=== PATIENT | male | born 1955 | race Caucasian/White ===

== ENCOUNTER → 2017-02-14 | Outpatient (CLI) | payer BC | END | disposition home or self-care (01) | LOC: NUCLEAR 09:10 | DX: R10.9 Unspecified abdominal pain (principal); R59.0 Localized enlarged lymph nodes | CPT/HCPCS: 78802; A9556 ==

== ENCOUNTER 2017-08-11 14:48 | Emergency (ER) | payer BC ==
[~2017-08-11] VITALS: Ht 172.7 cm; Wt 80.7 kg
== END 2017-08-11 21:22 | disposition home or self-care (01) ==
LOC: ER 14:48
DX: S00.83XA Contusion of other part of head, initial encounter (principal); S00.33XA Contusion of nose, initial encounter; R55 Syncope and collapse; W18.09XA Striking against other object with subsequent fall, initial encounter; Y93.89 Activity, other specified; Y92.488 Other paved roadways as the place of occurrence of the external cause; Y99.8 Other external cause status

== ENCOUNTER 2017-08-15 08:17 | Outpatient (CLI) | payer BC | END 2017-08-15 08:25 | disposition home or self-care (01) | LOC: LAB 08:17 | DX: R00.8 Other abnormalities of heart beat (principal) ==

== ENCOUNTER 2017-08-16 12:53 | Outpatient (CLI) | payer BC | END 2017-08-16 12:58 | disposition home or self-care (01) | LOC: NUCLEAR 12:53 | DX: R00.2 Palpitations (principal) ==

== ENCOUNTER 2017-09-01 10:03 | Outpatient (CLI) | payer BC | END 2017-09-01 11:00 | disposition home or self-care (01) | LOC: NUCLEAR 10:03 | DX: I20.1 Angina pectoris with documented spasm (principal) | CPT/HCPCS: 78452; 93017; A9500; J0153 ==

== ENCOUNTER 2017-09-05 11:19 | Outpatient (CLI) | payer BC | END 2017-09-05 16:38 | disposition home or self-care (01) | LOC: TOM 11:19 | DX: R59.1 Generalized enlarged lymph nodes (principal); A18.2 Tuberculous peripheral lymphadenopathy ==

== ENCOUNTER 2020-06-16 10:48 | Outpatient (CLI) | payer OTHER | END 2020-06-16 10:53 | disposition home or self-care (01) | LOC: RAD 10:48 | PROVIDERS: ATTEND Specialist | DX: J45.998 Other asthma (principal) ==

== ENCOUNTER 2020-06-24 08:11 | Outpatient (CLI) | payer OTHER | END 2020-06-24 08:14 | disposition home or self-care (01) | LOC: NUCLEAR 08:11 | PROVIDERS: ATTEND Internal Medicine Cardiovascular Disease | DX: G45.8 Other transient cerebral ischemic attacks and related syndromes (principal); I11.9 Hypertensive heart disease without heart failure ==

== ENCOUNTER 2020-07-15 13:02 | Outpatient (CLI) | payer OTHER | END 2020-07-31 13:23 | disposition home or self-care (01) | LOC: MRI 13:02 | PROVIDERS: ATTEND Internal Medicine Cardiovascular Disease | DX: G45.1 Carotid artery syndrome (hemispheric) (principal); G45.3 Amaurosis fugax; G45.8 Other transient cerebral ischemic attacks and related syndromes | CPT/HCPCS: 70551 ==

== ENCOUNTER 2020-10-07 09:05 | Outpatient (CLI) | payer OTHER | END 2020-10-07 09:07 | disposition home or self-care (01) | LOC: SONOGRAMA 09:05 → MAMO-SONO 09:45 | PROVIDERS: ATTEND Specialist | DX: N20.0 Calculus of kidney (principal); N17.8 Other acute kidney failure ==